=== PATIENT | female | born 1945 | race Caucasian/White ===

== ENCOUNTER 2016-08-28 07:56 | Inpatient (IN) | payer MEDICARE ==
[~2016-08-28] VITALS: Ht 154.9 cm; Wt 89.0 kg
[2016-08-28] MEDS ORDERED: HYDR25TA5 PO (08:46)
[2016-08-28] MEDS ORDERED: LOSA100T PO (08:46)
[2016-08-28] MEDS ORDERED: MELO-1 PO (08:46)
[2016-08-28] MEDS ORDERED: LEVO50TA4 PO (08:46)
[2016-08-28] MEDS ORDERED: MULTCAP PO (08:46)
[2016-08-28] MEDS ORDERED: ATOR20TA15 PO (08:46)
[2016-08-28] MEDS ORDERED: OMEP10CA PO (08:46)
[2016-08-28] MEDS ORDERED: CALCCHW3 CHEW (08:46)
[2016-09-07 05:52] VITALS: BP 144/69; PULSE 68; RESP 20; TEMP 98.1; O2SAT 95
[2016-09-07] MEDS ORDERED: GENTAMICIN SULFATE 80 MG/2 ML VIAL ONE (06:01)
[2016-09-07] MEDS ORDERED: LACTATED RINGER'S 1000 ML INJ 1,000 ML ONE (06:05)
[2016-09-07] MEDS ORDERED: MIDAZOLAM HCL 5 MG/5 ML VIAL ONE (06:10)
[2016-09-07] MEDS ORDERED: DEXAMETHASONE SOD PHOS 4 MG/ML VIAL ONE (06:18)
[2016-09-07] MEDS ORDERED: ceFAZolin 2 GM PREMIX 50 ML IV SCH (07:00)
[2016-09-07] MEDS ORDERED: TRANEXAMIC ACID INJ 900 MG in SODIUM CHLORIDE 0.9% INJ 100 ML IV SCH (07:00)
[2016-09-07] MEDS: TRANEXAMIC ACID INJ 900 MG in SODIUM CHLORIDE 0.9% INJ 100 ML IV SCH ×2 (07:00→07:22)
[2016-09-07] MEDS: CHLORHEXIDINE GLUCONATE 4% SOLN 120 ML BTL TOP SCH (07:00)
[2016-09-07] MEDS ORDERED: EXPAREL PERI-ARTICULAR INJECTION (TOTAL VOL. 100 ML) P-ARTICULR SCH ×2 (07:00)
[2016-09-07] MEDS ORDERED: TRANEXAMIC ACID INJ 0 MG in SODIUM CHLORIDE 0.9% INJ 100 ML IV SCH (07:15)
[2016-09-07] MEDS ORDERED: SODIUM CHLORIDE 0.9% FLUSH 5 ML FLUSH IVF PRN (07:15)
[2016-09-07] MEDS ORDERED: MORPHINE SULFATE 4 MG/ML INJ IV PUSH PRN (07:15)
[2016-09-07] MEDS ORDERED: ZOLPIDEM TARTRATE 5 MG TAB PO PRN (07:15)
[2016-09-07] MEDS ORDERED: ONDANSETRON HCL 4 MG/2 ML VIAL IVP PRN (07:15)
[2016-09-07] MEDS ORDERED: MAGNESIUM HYDROXIDE SUSP 30 ML CUP PO PRN (07:15)
[2016-09-07] MEDS ORDERED: Post-op Orders (for Pharmacy) MISC XX ONE (07:15)
[2016-09-07] MEDS: LEVOTHYROXINE SODIUM 50 MCG TAB PO SCH (09:00)
[2016-09-07] MEDS: ASPIRIN EC 81 MG TABEC PO SCH ×2 (09:00→20:43)
[2016-09-07] MEDS: LOSARTAN 50 MG TAB PO SCH (09:00)
[2016-09-07] MEDS: ATORVASTATIN 20 MG TAB PO SCH (09:00)
[2016-09-07] MEDS: SODIUM CHLORIDE 0.9% FLUSH 5 ML FLUSH IVF SCH ×2 (09:00→20:42)
[2016-09-07] MEDS: HYDROCHLOROTHIAZIDE 25 MG TAB PO SCH (09:00)
[2016-09-07] MEDS: MULTIVITAMINS/MINERALS THERAPEUTIC TAB PO SCH (09:00)
[2016-09-07] MEDS ORDERED: PTOWN: OMEPRAZOLE 10 MG BY MOUTH DAILY PO SCH (10:00)
[2016-09-07] MEDS ORDERED: DO NOT ADM ANY ANTICOAGULANT DRUGS XX PRN (10:30)
[2016-09-07] MEDS: LACTATED RINGER'S 1000 ML INJ 1,000 ML IV SCH ×2 (10:30→21:30)
--- NOTE | 2016-09-07 10:57 | RADRPT ---
EXAM DATE/TIME: 09/07/2016 10:08 [place] COMPARISON: No previous studies available for comparison. INDICATIONS : Post op left knee . MEDICAL HISTORY : None. SURGICAL HISTORY : None. ENCOUNTER: Initial ACUITY: 1 day PAIN SCORE: 08/04 LOCATION: Left knee FINDINGS: AP and lateral views of the left knee were obtained and demonstrate that the patient is status post t otal knee arthroplasty. The femoral and tibial components are intact and in normal alignment. The pat brie component is intact as well. There are overlying surgical drains. There is anterior soft tissue swelling. CONCLUSION: Expected postoperative changes status post arthroplasty. Jesse Garay MD on September 07, 2016 at 10:52 Board Certified Radiologist. This report was verified electronically.
[2016-09-07] MEDS: KETOROLAC TROMETHAMINE 30 MG/ML (IVP) VIAL IVP SCH ×3 (11:00→23:24)
--- NOTE | 2016-09-07 11:03 | PD.CONS ---
[facility] By [facility] Reason for Consult Medical management Primary Care Physician Barbie Paula M.D. Diagnoses: History of Present Illness 71-year-old female with a history of hypertension, hyperlipidemia, hypothyroidism and severe Left knee OA who despite medical management and injection continue to have severe right knee pain affecting her daily living of activity including ambulation. Patient was taken to the operating room today and underwent left total knee arthroplasty. She was seen after walking in PACU , denies any chest pain or shortness of breath. Vitals stable. Review of Systems Other 12 systems reviewed and are negative except for the one mentioned in the history of present illness Past Family Social History Allergies: Coded Allergies: No Known Allergies (Verified , 08/28/16) Past Medical History Hypertension Hyperlipidemia Hypothyroidism Bilateral severe OA Past Surgical History Left total knee arthroplasty 09/07/16 Reported Medications See EMR Family History Noncontributory Social History Denies tobacco, alcohol or illicit drug intake. Physical Exam Vital Signs Vital Signs Date Time Temp Pulse Resp B/P Pulse Ox O2 Delivery O2 Flow Rate FiO2 09/07/16 10:45 96 13 136/67 96 Room Air 09/07/16 10:30 92 13 139/65 97 Room Air 09/07/16 10:15 93 15 123/64 96 Room Air 09/07/16 10:00 95 14 110/65 98 Nasal Cannula 2 09/07/16 09:50 97.6 100 14 121/66 95 Nasal Cannula 2 09/07/16 06:30 72 14 146/77 97 09/07/16 06:15 65 16 164/82 99 09/07/16 06:01 69 16 174/80 99 09/07/16 06:01 99 Nasal Cannula 3 09/07/16 05:52 98.1 68 20 144/69 95 Physical Exam GENERAL: This is a well-nourished, well-developed patient, in no apparent distress. SKIN: No rashes, ecchymoses or lesions. Cool and dry. HEAD: Atraumatic. Normocephalic. No temporal or scalp tenderness. EYES: Pupils equal round and reactive. Extraocular motions intact. No scleral icterus. No injection or drainage. ENT: Nose without bleeding, purulent drainage or septal hematoma. Throat without erythema, tonsillar hypertrophy or exudate. Uvula midline. Airway patent. NECK: Trachea midline. No JVD or lymphadenopathy. Supple, nontender, no meningeal signs. CARDIOVASCULAR: Regular rate and rhythm without murmurs, gallops, or rubs. RESPIRATORY: Clear to auscultation. Breath sounds equal bilaterally. No wheezes , rales, or rhonchi. GASTROINTESTINAL: Abdomen soft, non-tender, nondistended. No hepato-splenomegaly , or palpable masses. No guarding. MUSCULOSKELETAL: Extremities without clubbing, cyanosis, or edema. Left knee repair, dressing in place-neurovascular intact NEUROLOGICAL: Awake and alert. Cranial nerves II through XII intact. Motor and sensory grossly within normal limits. Five out of 5 muscle strength in all muscle groups. Normal speech. Laboratory Laboratory Tests Test 09/07/16 05:50 Blood Type O POSITIVE Antibody Screen NEGATIVE Blood Bank Comment Assessment and Plan Assessment and Plan 21-year-old female with Severe left knee OA: Status post left total knee arthroplasty, management per orthopedic surgery. Continue current postop care. DVT prophylaxis per orthopedic surgery. ET consult to treat and eval. History of hypertension, hyperlipidemia, hypothyroidism: Resume outpatient medication. DVT prophylaxis: Per orthopedic surgery. Thank you for this consultation Code Status Full code Discussed Condition With Patient Torres Patrick MD Sep 07, 2016 11:03
[2016-09-07] MEDS ORDERED: ENALAPRILAT 1.25 MG/ML VIAL IV PUSH PRN (11:15)
[2016-09-07] MEDS ORDERED: RESP: ALBUTEROL 2.5 MG/IPRATROPIUM 0.5 MG NEB (PRN) NEB (11:15)
[2016-09-07] MEDS ORDERED: LACTATED RINGER'S 1000 ML INJ 1,000 ML IV ONE (13:05)
[2016-09-07] MEDS ORDERED: ePHEDrine/NS 25 MG/5 ML SYR IV ONE (13:05)
[2016-09-07] MEDS ORDERED: ONDANSETRON HCL 4 MG/2 ML VIAL IV PUSH ONE (13:05)
[2016-09-07] MEDS ORDERED: PROPOFOL 200 MG/20 ML AMP IV ONE (13:05)
[2016-09-07 13:09] VITALS: BP 120/67; PULSE 107; RESP 16; TEMP 96; O2SAT 96
[2016-09-07] MEDS ORDERED: BUPIVACAINE HCL PF 0.5% 30 ML VIAL NB ONE (14:29)
[2016-09-07] MEDS ORDERED: DEXAMETHASONE SOD PHOS PF 10 MG/ML VIAL IV ONE (14:30)
[2016-09-07] MEDS: ACETAMINOPHEN/HYDROcodone 325 MG/7.5 MG TAB PO PRN (17:40)
[2016-09-07 20:09] VITALS: BP 113/57; PULSE 76; RESP 18; TEMP 97.8; O2SAT 92
[2016-09-08] VITALS: BP 111/55; PULSE 80; RESP 16; TEMP 97.2; O2SAT 98
[2016-09-08 04:00] VITALS: BP 123/57; PULSE 73; RESP 16; TEMP 97.6; O2SAT 94
[2016-09-08] MEDS: KETOROLAC TROMETHAMINE 30 MG/ML (IVP) VIAL IVP SCH ×4 (06:03→23:23)
[2016-09-08] MEDS: LEVOTHYROXINE SODIUM 50 MCG TAB PO SCH (06:06)
[2016-09-08] MEDS: ACETAMINOPHEN/HYDROcodone 325 MG/7.5 MG TAB PO PRN ×4 (06:06→20:57)
--- NOTE | 2016-09-08 06:43 | PD.ORT.PN ---
Subjective Post Op Day #: 1 Subjective Remarks She is doing well, with little pain. She has been OOB. Range of Motion -15 to 90 degrees. Distance Walked 40 feet twice. Objective Vitals Vital Signs Date Time Temp Pulse Resp B/P Pulse Ox O2 Delivery O2 Flow Rate FiO2 09/08/16 04:00 97.6 73 16 123/57 94 09/08/16 00:00 97.2 80 16 111/55 98 09/07/16 20:09 97.8 76 18 113/57 92 09/07/16 13:09 96.0 107 16 120/67 96 09/07/16 12:00 97.5 100 12 129/66 98 Nasal Cannula 2 09/07/16 11:45 98 12 122/69 98 Nasal Cannula 2 09/07/16 11:30 74 12 142/62 99 Nasal Cannula 2 09/07/16 11:15 98 12 141/71 93 Room Air 09/07/16 11:00 97 14 142/72 95 Room Air 09/07/16 10:45 96 13 136/67 96 Room Air 09/07/16 10:30 92 13 139/65 97 Room Air 09/07/16 10:15 93 15 123/64 96 Room Air 09/07/16 10:00 95 14 110/65 98 Nasal Cannula 2 09/07/16 09:50 97.6 100 14 121/66 95 Nasal Cannula 2 I/O 09/07/16 09/07/16 09/07/16 09/08/16 09/08/16 09/08/16 07:00 15:00 23:00 07:00 15:00 23:00 Intake Total 1460 ml 240 ml 280 ml Output Total 370 ml 80 ml 30 ml Balance 1090 ml 160 ml 250 ml Intake Oral 80 ml 240 ml IV Total 180 ml 280 ml Other 1200 ml Output Drainage Total 70 ml 80 ml 30 ml Estimated Blood Loss 300 ml # Voids 1 # Bowel Movements 0 Imaging Knee x-ray looks good. Last 72 hours Impressions Knee X-Ray 09/07/16 0000 Signed Impressions: Service Date/Time: Wednesday, September 07, 2016 10:08 - CONCLUSION: Expected postoperative changes status post arthroplasty. Jesse Gaary MD Objective Remarks She is resting comfortably, supine in bed in the CPM. The neurovascular status is intact. The dressing is dry and intact. Assessment & Plan Ortho Post Op Day #: 1 Problem List: (1) Status post total left knee replacement Plan: Continue postop care and PT. Assessment and Plan Condition: Good. Orthopaedically stable. DVT prophylaxis: JENNA stockings, sequentials, ASA. Discharge plans: Home with [facility]. Has appointment. Flaco Sams MD (Charles) Sep 08, 2016 06:43
[2016-09-08] MEDS: CHLORHEXIDINE GLUCONATE 4% SOLN 120 ML BTL TOP SCH (07:00)
[2016-09-08 08:00] VITALS: BP 114/56; PULSE 66; RESP 16; TEMP 97; O2SAT 95
[2016-09-08 08:10] LABS: HEMATOCRIT 27.3 % (35.0-46.0); REVIEW FLAG FINAL
[2016-09-08 08:48] LABS: BICARBONATE 25.5 MEQ/L (21.0-32.0); POTASSIUM 3.5 MEQ/L (3.5-5.1)
[2016-09-08] MEDS: SODIUM CHLORIDE 0.9% FLUSH 5 ML FLUSH IVF SCH ×2 (09:00→21:02)
[2016-09-08] MEDS: HYDROCHLOROTHIAZIDE 25 MG TAB PO SCH (09:14)
[2016-09-08] MEDS: MULTIVITAMINS/MINERALS THERAPEUTIC TAB PO SCH (09:14)
[2016-09-08] MEDS: LOSARTAN 50 MG TAB PO SCH (09:14)
[2016-09-08] MEDS: ASPIRIN EC 81 MG TABEC PO SCH ×2 (09:14→20:57)
[2016-09-08] MEDS: ATORVASTATIN 20 MG TAB PO SCH (09:14)
[2016-09-08] MEDS: LACTATED RINGER'S 1000 ML INJ 1,000 ML IV SCH ×2 (10:00→22:30)
--- NOTE | 2016-09-08 10:02 | HHI.PR ---
Subjective Remarks Patient seen and examined Reports pain control and no acute event overnight States she was up and ambulated since admission Objective Vitals Vital Signs Date Time Temp Pulse Resp B/P Pulse Ox O2 Delivery O2 Flow Rate FiO2 09/08/16 08:00 97.0 66 16 114/56 95 09/08/16 04:00 97.6 73 16 123/57 94 09/08/16 00:00 97.2 80 16 111/55 98 09/07/16 20:09 97.8 76 18 113/57 92 09/07/16 13:09 96.0 107 16 120/67 96 09/07/16 12:00 97.5 100 12 129/66 98 Nasal Cannula 2 09/07/16 11:45 98 12 122/69 98 Nasal Cannula 2 09/07/16 11:30 74 12 142/62 99 Nasal Cannula 2 09/07/16 11:15 98 12 141/71 93 Room Air 09/07/16 11:00 97 14 142/72 95 Room Air 09/07/16 10:45 96 13 136/67 96 Room Air 09/07/16 10:30 92 13 139/65 97 Room Air 09/07/16 10:15 93 15 123/64 96 Room Air 09/07/16 10:00 95 14 110/65 98 Nasal Cannula 2 I/O 09/07/16 09/07/16 09/07/16 09/08/16 09/08/16 09/08/16 07:00 15:00 23:00 07:00 15:00 23:00 Intake Total 1460 ml 240 ml 460 ml Output Total 370 ml 80 ml 30 ml Balance 1090 ml 160 ml 430 ml Intake Oral 80 ml 240 ml 180 ml IV Total 180 ml 280 ml Other 1200 ml Output Drainage Total 70 ml 80 ml 30 ml Estimated Blood Loss 300 ml # Voids 1 1 # Bowel Movements 0 Result Diagram: 09/08/16 0750 09/08/16 0750 Imaging Last Impressions Knee X-Ray 09/07/16 0000 Signed Impressions: Service Date/Time: Wednesday, September 07, 2016 10:08 - CONCLUSION: Expected postoperative changes status post arthroplasty. Jesse Garay MD Objective Remarks GENERAL: NAD SKIN: Warm and dry. HEAD: Normocephalic. EYES: No scleral icterus. No injection or drainage. NECK: Supple, trachea midline. No JVD or lymphadenopathy. CARDIOVASCULAR: Regular rate and rhythm without murmurs, gallops, or rubs. RESPIRATORY: Breath sounds equal bilaterally. No accessory muscle use. GASTROINTESTINAL: Abdomen soft, non-tender, nondistended. MUSCULOSKELETAL: No cyanosis, or edema. Left knee repair, dressing in place- neurovascular intact BACK: Nontender without obvious deformity. No CVA tenderness. A/P Assessment and Plan 71-year-old female with Severe left knee OA: Status post left total knee arthroplasty, management per orthopedic surgery. Continue current postop care. DVT prophylaxis per orthopedic surgery. PT consult to treat and eval. History of hypertension, hyperlipidemia, hypothyroidism: continue outpatient medications. DVT prophylaxis: Per orthopedic surgery. Torres Patrick MD Sep 08, 2016 10:02
[2016-09-08] MEDS: MAGNESIUM HYDROXIDE SUSP 30 ML CUP PO SCH ×2 (11:38→20:57)
[2016-09-08 12:00] VITALS: BP 112/55; PULSE 69; RESP 16; TEMP 96; O2SAT 95
[2016-09-08 16:29] VITALS: BP 121/62; PULSE 55; RESP 16; TEMP 97.4; O2SAT 93
--- NOTE | 2016-09-08 19:58 | MP ---
cc: Yanira ADDISON. DATE OF SURGERY: 09/07/2016 PREOPERATIVE DIAGNOSIS: Primary osteoarthritis left knee. POSTOPERATIVE DIAGNOSIS: Primary osteoarthritis left knee. OPERATION: Left total knee arthroplasty with [place] Triathlon prosthesis (uncemented). SURGEON Justin Addison MD ASSESSMENT [facility] ANESTHESIA: Spinal plus adductor canal block, plus local. INDICATIONS AND FINDINGS This 71-year-old woman has had a 2-year history of left knee pain progressively worsening to the point that she has less than half a mile ambulation tolerance. She has laxity in the knee with stiffness and pain with stairs or chairs. She has to lean on a cart when she shops. She has pain immediately on weightbearing. Treatment has included nonsteroidal anti-inflammatory agents, activity modification, analgesics, exercises, intra-articular corticosteroids and ambulatory aids. Physical findings showed genu varum with medial laxity, crepitation on motion and tenderness particularly in the medial and patellofemoral compartments. Imaging studies showed advanced arthritis in the knee with loss of articular cartilage to [id number] in the medial compartment, osteophytes in the medial, lateral and patellofemoral compartments and eburnation medially. OPERATIVE FINDINGS Operative findings showed significant osteoarthritis in the left knee particularly in the medial compartment with medial lateral and patellofemoral osteophytes. There is loss of articular cartilage also in the patellofemoral and lateral compartments. The prosthesis used was a [place] Triathlon prosthesis. The femur is a cruciate-retaining left femur size 4, uncemented, with the tibia being a size 4 Tritanium base plate also uncemented, the spacer being a size 4 cruciate-retaining 11 mm and the patella being a 32 mm asymmetric Tritanium backed patella. PROCEDURE The patient had an adductor canal block and then was transferred to the clean-air operating suite. She had a spinal anesthetic administered. She was placed in a supine position on the operating table with a bolster under the affected hip and a pneumatic tourniquet about the affected thigh. The limb was then prepped with alcohol, Hibiclens and Chloraprep and draped in the usual manner with the knee draped free. An appropriate time-out procedure was carried out. Local anesthesia was administered into the incision site. The incision was made from about three fingerbreadths above the superior and medial pole of patella down to the tibial tubercle on the medial side. The incision was deepened through the subcutaneous tissues to the retinacular structures which were exposed medially and laterally. A medial retinacular incision was made from the superior and medial pole of the patella down to the tibial tubercle up into the quadriceps tendon splitting it longitudinally in the medial one third. The patella was reflected. The infrapatellar fat pad was debulked. Medial and lateral dissection was carried out. Hemostasis achieved throughout the procedure with electrocautery. The posterior surface of the patella was exposed. The posterior surface was then excised with the oscillating saw. A patella protector was applied. Fenestration was made in the distal end of the femur and proximal end of the tibia for intermedullary referencing guides. Mara's line was marked on the femur. The distal femoral cutting guide and jig were assembled for 5 degrees 8-mm cut. The cutting block was stabilized with pins. The jig was removed. The distal femoral cut was completed with the oscillating saw. The sizing guide was positioned along the Mara's line and the epicondylar axis. This was stabilized with pins. The size was determined to be a size 4. The appropriate four-in-one cutting block was then positioned in place and stabilized with pins. Anterior and posterior cuts were made followed by posterior and anterior chamfer cuts. Osteophytes were trimmed. The medial and lateral meniscectomies were completed. The tibial cutting guide and jig were then assembled and positioned appropriately. Rotation was checked and this was stabilized with pins. The depth of cut was verified with the stylus. The cutting block was stabilized with pins. The jig was removed. The depth of cut was verified with the spacer block. The cutting block was stabilized with a cross pin. After placement of appropriate retractors, the proximal tibial cut was completed with the oscillating saw. The bone was removed. The spacer block was used to verify the appropriate cut. The fenestrations were then filled with bone plugs. The posterior osteophytes on the femur were removed. The posterior capsule and associated structures were anesthetized with Exparel. The tibial trial was positioned in place with a 9 mm spacer. The femoral component was impacted onto the femur. It appeared that this needed to be rechecked so it was removed, and the 11-mm spacer inserted. The femoral component was impacted into place and seated appropriately. The alignment was checked on the tibia. This was then stabilized with pins. The patella drill guide was positioned for the 32-mm patella. Drill holes were made. The trial prosthesis was inserted. The knee was taken through a range of motion which was easily 0 degrees extension to 135 degrees of flexion with excellent stability and excellent tracking of the patella. Patella trial was removed. Femoral drill holes were made. The femoral trials removed. The tibial spacer was removed. Tibial punch was impacted through its guide and removed. The tibial drill guide was positioned in place after removal of the tibial trial. Drill holes were made. The cut ends of bone were cleaned with pulse lavage. Further local anesthesia was administered. The tibial baseplate was impacted into place and seated appropriately. The spacer was inserted and impacted into place. The femoral component was then impacted into place. The patella was prosthesis with positioned on the patella and seated with the patella vice. The knee was taken through a range of motion which was easily 0 degrees extension with 150 degrees of flexion with excellent stability in flexion and extension. The remainder of the Exparel was injected. Drains were brought out the superolateral aspect of the suprapatellar pouch. Wound closure then commenced with 0 Vicryl interrupted [id number] sutures for the retinacular structures and capsular structures, 2-0 Vicryl interrupted simple sutures with buried knots for the subcutaneous tissues and 4-0 Monocryl continuous subcuticular closure for the skin. The wounds were dressed with Steri-Strips followed by dry dressing, sterile Sof-Rol, cooling pad, further sterile Sof-Rol and Eliecer bandage from the base the toes to midthigh. The patient was transferred from the operating room to the recovery room in satisfactory condition having tolerated the procedure well. Counts were correct. Specimens none. Estimated blood loss 175 mL. MD ALEXEI Moreno/DENISE /9:42 AM /7:43 PM
[2016-09-08 20:06] VITALS: BP 123/58; PULSE 71; RESP 20; TEMP 98; O2SAT 97
[2016-09-08] MEDS: DOCUSATE SODIUM 100 MG CAP PO SCH (20:57)
[2016-09-08] MEDS ORDERED: SENNOSIDES 8.6 MG TAB PO SCH (21:00)
[2016-09-09] VITALS: BP 102/43; PULSE 62; RESP 20; TEMP 98.3; O2SAT 93
[2016-09-09 04:00] VITALS: BP 121/57; PULSE 58; RESP 20; TEMP 97; O2SAT 93
[2016-09-09] MEDS: KETOROLAC TROMETHAMINE 30 MG/ML (IVP) VIAL IVP SCH (05:48)
[2016-09-09] MEDS: LEVOTHYROXINE SODIUM 50 MCG TAB PO SCH (05:48)
[2016-09-09] MEDS: ACETAMINOPHEN/HYDROcodone 325 MG/7.5 MG TAB PO PRN (05:49)
[2016-09-09 06:57] LABS: HEMATOCRIT 27.3 % (35.0-46.0); REVIEW FLAG FINAL
[2016-09-09] MEDS: CHLORHEXIDINE GLUCONATE 4% SOLN 120 ML BTL TOP SCH (07:00)
--- NOTE | 2016-09-09 07:09 | PD.ORT.PN ---
Subjective Post Op Day #: 2 Subjective Remarks She did well in the class. She has little pain. Range of Motion -10 to 95. Distance Walked 200 feet. Objective Vitals Vital Signs Date Time Temp Pulse Resp B/P Pulse Ox O2 Delivery O2 Flow Rate FiO2 09/09/16 00:00 98.3 62 20 102/43 93 09/08/16 20:06 98.0 71 20 123/58 97 09/08/16 16:29 97.4 55 16 121/62 93 09/08/16 12:00 96.0 69 16 112/55 95 09/08/16 08:00 97.0 66 16 114/56 95 I/O 09/08/16 09/08/16 09/08/16 09/09/16 09/09/16 09/09/16 07:00 15:00 23:00 07:00 15:00 23:00 Intake Total 460 ml 240 ml 240 ml Output Total 30 ml 70 ml 20 ml Balance 430 ml 170 ml 220 ml Intake Oral 180 ml 240 ml 240 ml IV Total 280 ml Output Drainage Total 30 ml 70 ml 20 ml # Voids 1 3 1 # Bowel Movements 1 0 Result Diagram: 09/09/16 0555 09/08/16 0750 Imaging Knee x-ray looks good. Last 72 hours Impressions Knee X-Ray 09/07/16 0000 Signed Impressions: Service Date/Time: Wednesday, September 07, 2016 10:08 - CONCLUSION: Expected postoperative changes status post arthroplasty. Jesse Garay MD Objective Remarks She is resting comfortably, supine in bed in the CPM. The neurovascular status is intact. The dressing is dry and intact. There is no erythema or induration. Assessment & Plan Ortho Post Op Day #: 1 Problem List: (1) Status post total left knee replacement Plan: Continue postop care and PT. Assessment and Plan Condition: Good. Orthopaedically stable. DVT prophylaxis: JENNA stockings, sequentials, ASA. Discharge plans: Home with [facility]. Has appointment. Flaco Sams MD (Charles) Sep 09, 2016 07:09
[2016-09-09 08:00] VITALS: BP 129/57; PULSE 58; RESP 20; TEMP 96.7; O2SAT 96
--- NOTE | 2016-09-09 08:07 | HHI.FF ---
Face to Face Verification Diagnosis: (1) Status post total left knee replacement Physical Therapy Gait training Knee: Total knee, Protocol: Left, Gait training, Full weight bearing Right LE Weight Bearing: WB as tolerated Left LE Weight Bearing: WB as tolerated Left LE Range of Motion: Active ROM (AROM, AAROM, PROM, PRE. ROM goal is 0 to 135 degrees.) Nursing Nursing: Dressing changes Dressing Changes: Daily dressing change, Coverderm/Primapore Additional Instructions Remove steristrips on postop day 14. I have seen patient Alivia Levi on 09/09/16. My clinical findings support the need for the requested home health care services because: Ltd mobility - disease progression Limited ability to care for self High risk of falls I certify that my clinical findings support that this patient is homebound because: Post-op weakness Unsteady gait/balance Unsafe to leave home unassisted Flaco Sams MD (Charles) Sep 09, 2016 08:07
[2016-09-09] MEDS ORDERED: ASPI81TA11 PO (08:11)
[2016-09-09] MEDS ORDERED: WALKER WHEELS/F1 MIS (08:11)
[2016-09-09] MEDS ORDERED: MISC-163 (08:11)
[2016-09-09] MEDS ORDERED: HYDR-3580 PO (08:11)
[2016-09-09] MEDS: SODIUM CHLORIDE 0.9% FLUSH 5 ML FLUSH IVF SCH (09:00)
[2016-09-09] MEDS: MAGNESIUM HYDROXIDE SUSP 30 ML CUP PO SCH (09:00)
[2016-09-09] MEDS: ATORVASTATIN 20 MG TAB PO SCH (09:08)
[2016-09-09] MEDS: LOSARTAN 50 MG TAB PO SCH (09:08)
[2016-09-09] MEDS: DOCUSATE SODIUM 100 MG CAP PO SCH (09:08)
[2016-09-09] MEDS: HYDROCHLOROTHIAZIDE 25 MG TAB PO SCH (09:09)
[2016-09-09] MEDS: MULTIVITAMINS/MINERALS THERAPEUTIC TAB PO SCH (09:09)
[2016-09-09] MEDS: ASPIRIN EC 81 MG TABEC PO SCH (09:09)
[2016-09-09] MEDS: LACTATED RINGER'S 1000 ML INJ 1,000 ML IV SCH (09:12)
--- NOTE | 2016-09-09 11:09 | HHI.PR ---
Subjective Remarks Patient seen and examined No acute event overnight Pain currently control Afebrile She is looking for discharge home with home health care Objective Vitals Vital Signs Date Time Temp Pulse Resp B/P Pulse Ox O2 Delivery O2 Flow Rate FiO2 09/09/16 08:00 96.7 58 20 129/57 96 09/09/16 04:00 97.0 58 20 121/57 93 09/09/16 00:00 98.3 62 20 102/43 93 09/08/16 20:06 98.0 71 20 123/58 97 09/08/16 16:29 97.4 55 16 121/62 93 09/08/16 12:00 96.0 69 16 112/55 95 I/O 09/08/16 09/08/16 09/08/16 09/09/16 09/09/16 09/09/16 07:00 15:00 23:00 07:00 15:00 23:00 Intake Total 460 ml 240 ml 240 ml Output Total 30 ml 70 ml 20 ml Balance 430 ml 170 ml 220 ml Intake Oral 180 ml 240 ml 240 ml IV Total 280 ml Output Drainage Total 30 ml 70 ml 20 ml # Voids 1 3 1 1 # Bowel Movements 1 0 1 Result Diagram: 09/09/16 0555 09/08/16 0750 Objective Remarks GENERAL: NAD SKIN: Warm and dry. HEAD: Normocephalic. EYES: No scleral icterus. No injection or drainage. NECK: Supple, trachea midline. No JVD or lymphadenopathy. CARDIOVASCULAR: Regular rate and rhythm without murmurs, gallops, or rubs. RESPIRATORY: Breath sounds equal bilaterally. No accessory muscle use. GASTROINTESTINAL: Abdomen soft, non-tender, nondistended. MUSCULOSKELETAL: No cyanosis, or edema. Left knee repair, dressing in place- neurovascular intact BACK: Nontender without obvious deformity. No CVA tenderness. A/P Assessment and Plan 71-year-old female with Severe left knee OA: Status post left total knee arthroplasty, management per orthopedic surgery. Continue current postop care. DVT prophylaxis per orthopedic surgery. PT consult to treat and eval. History of hypertension, hyperlipidemia, hypothyroidism: Stable and continue outpatient medications. DVT prophylaxis: Per orthopedic surgery. Discharge Planning Medically clear for discharge Torres Patrick MD Sep 09, 2016 11:09
[2016-09-09 12:00] VITALS: BP 116/57; PULSE 80; RESP 16; TEMP 96.8; O2SAT 92
== END 2016-09-09 15:02 | disposition home health service (06) | DRG 470 ==
LOC: HSDI 09-07 05:11 → N06B 09-07 12:49
PROVIDERS: ADMIT Orthopaedic Surgery; ATTEND Orthopaedic Surgery
PROC: 0QRF0JZ Replacement of Left Patella with Synthetic Substitute, Open Approach (ICD-10-PCS; 2016-09-07)
PROC: 3E0T3CZ (ICD-10-PCS; 2016-09-07)
PROC: 0SRD0JA Replacement of Left Knee Joint with Synthetic Substitute, Uncemented, Open Approach (ICD-10-PCS; principal; 2016-09-07 06:47)
DX: M17.12 Unilateral primary osteoarthritis, left knee (principal); I10 Essential (primary) hypertension; E78.5 Hyperlipidemia, unspecified; E03.9 Hypothyroidism, unspecified; M25.762 Osteophyte, left knee; M21.162 Varus deformity, not elsewhere classified, left knee; K21.9 Gastro-esophageal reflux disease without esophagitis
CPT/HCPCS: 73560; 80048; 85014; 85018; 86850; 86900; 86901; 94150; C1776; J0690; J1100; J1580; J1885; J2250; J2270; J2405; J7120

== ENCOUNTER → 2016-08-28 | Outpatient (CLI) | payer MEDICARE ==
[~2016-08-28] MED LIST: ASPI81TA11 PO; ATOR20TA15 PO; CALCCHW3 CHEW; CALCTAB98; DOCU100C PO; FERR325T20 PO; HYDR-3111 PO; HYDR-3580 PO; HYDR25TA5 PO; LEVO50TA4 PO; LOSA100T PO; MELO-1 PO; MISC-163; MOBI15TA PO; MULTCAP PO; MULTIVITAMIN; MULTTAB67 PO; OMEP10CA PO; PREVASTATIN PO; WALKER WHEELS/F1 MIS
[2016-08-28 08:19] LABS: HEMATOCRIT 35.6 % (35.0-46.0); MEAN CELL VOLUME 86.2 FL (80.0-100.0); MEAN CORPUSCULAR HEMOGLOBIN 30.1 PG (27.0-34.0); MEAN CORPUSCULAR HGB CONC 34.9 % (32.0-36.0); PLATELET COUNT 247 TH/MM3 (150-450); RED BLOOD COUNT 4.13 MIL/MM3 (4.00-5.30); RED CELL DISTRIBUTION WIDTH 12.8 % (11.6-17.2); REVIEW FLAG FINAL; WHITE BLOOD COUNT 5.3 TH/MM3 (4.0-11.0)
[2016-08-28 08:31] LABS: APTT (PATIENT) 26.7 SEC (24.3-30.1); PROTHROMBIN TIME - PATIENT 10.7 SEC (9.8-11.6)
[2016-08-28 08:51] LABS: BICARBONATE 30.2 MEQ/L (21.0-32.0)
[2016-08-28 09:12] LABS: BLOOD, URINE NEG (NEG); GLUCOSE,URINE NEG (NEG); KETONE, URINE NEG (NEG); MUCUS URINE FEW /lpf (OCC); NITRITE,URINE NEG (NEG); SQUAMOUS EPITHELIAL CELL URINE <1 /hpf (0-5); URINE COLOR YELLOW (YELLW/STRAW)
[2016-08-28 09:15] LABS: COMMENT (UR) CATH-CULT NOT IND; CULTURE IF INDICATED CATH CULTURE NOT IND
--- NOTE | 2016-08-30 12:26 | EKG ---
Date Performed: 08/28/2016 Time Performed: 08:36:17 PTAGE: 71 years EKG: Sinus rhythm WITH FIRST DEGREE AV BLOCK LOW QRS VOLTAGE IN PRECORDIAL LEADS Since previous tracing, no significan t change noted ABNORMAL ECG PREVIOUS TRACING : 09/22/2010 10.48.42 DOCTOR: Esvin Sullivan Interpretating Date/Time 08/30/2016 12:24:26
== END ==
LOC: CPRE 07:53
PROVIDERS: ATTEND Orthopaedic Surgery
DX: Z01.812 Encounter for preprocedural laboratory examination (principal); Z01.810 Encounter for preprocedural cardiovascular examination; M17.12 Unilateral primary osteoarthritis, left knee; M79.609 Pain in unspecified limb; I10 Essential (primary) hypertension; I44.0 Atrioventricular block, first degree; R94.31 Abnormal electrocardiogram [ECG] [EKG]
CPT/HCPCS: 36415; 80048; 81001; 85027; 85610; 85730; 93005

== ENCOUNTER 2016-09-19 10:29 | Emergency (ER) | payer MEDICARE ==
[~2016-09-19] VITALS: Ht 154.9 cm; Wt 194.0 kg
[~2016-09-19 10:29] MED LIST changes: -CALCTAB98; -DOCU100C PO; -FERR325T20 PO; -HYDR-3111 PO; -MOBI15TA PO; -MULTIVITAMIN; -MULTTAB67 PO; -PREVASTATIN PO
[2016-09-19 10:49] VITALS: BP 147/77; PULSE 106; RESP 16; TEMP 97.8; O2SAT 96
[2016-09-19] MEDS ORDERED: HYDR-3111 PO (11:24)
--- NOTE | 2016-09-19 11:26 | PD ---
HPI Chief Complaint: Medication Refill Request Time Seen by Provider: 11:14 Travel History International Travel<30 days: No Contact w/Intl Traveler<30days: No Traveled to known affect area: No History of Present Illness HPI This patient is requesting medication refill of her Vicodin. She had knee replacement 12 days ago. I received a call from her orthopedist coverage Dr. Tobias Daniel who asked if I would write a few to get her through the weekend. Pain severity is moderate PFSH Past Medical History Asthma: No Cancer: No Cardiovascular Problems: No COPD: No Diabetes: No Endocrine: No Gastrointestinal Disorders: Yes GERD: Yes Glaucoma: No Genitourinary: No Hepatitis: No Hiatal Hernia: No Hypertension: Yes Immune Disorder: No Musculoskeletal: Yes (OA) Neurologic: No Psychiatric: No Reproductive: No Respiratory: No Thyroid Disease: Yes Past Surgical History Abdominal Surgery: No AICD: No Cardiac Surgery: No Ear Surgery: No Endocrine Surgery: No Eye Surgery: Yes (LASIK) Genitourinary Surgery: No Gynecologic Surgery: Yes (TUBAL LIGATION) Joint Replacement: No Oral Surgery: Yes (TONSILLECTOMY AND ADNOIDS) Pacemaker: No Thoracic Surgery: No Other Surgery: Yes Social History Alcohol Use: No Tobacco Use: No Substance Use: No Allergies-Medications (Allergen,Severity, Reaction): Coded Allergies: No Known Allergies (Verified , 09/19/16) Reported Meds & Prescriptions Reported Meds & Active Scripts Active Hydrocodone-Acetaminophen 7.5-325 mg Tab 1 Tab PO Q4H PRN Aspirin EC (Aspirin) 81 Mg Tabdr 81 Mg PO BID Walker with Front Wheels (Device) 1 Mis Mis 1 Ea .ROUTE DIRECTED 3-in-1 Bedside Toilet (Device) 1 Mis Mis 1 Ea .ROUTE DIRECTED Reported Calci-Chew (Calcium Carbonate) 1,250 Mg Chew 1,250 Mg CHEW 1,250 mg calcium carbonate (500 mg elemental calcium) Omeprazole 10 Mg Cap 10 Mg PO DAILY Multi For Her (Multiple Vitamins W/ Minerals) 1 Cap Cap 1 Tab PO DAILY Meloxicam 15 Mg Tab 15 Mg PO DAILY Levothyroxine (Levothyroxine Sodium) 50 Mcg Tab 50 Mcg PO DAILY Losartan (Losartan Potassium) 100 Mg Tab 100 Mg PO DAILY Hydrochlorothiazide 25 Mg Tab 25 Mg PO DAILY Atorvastatin (Atorvastatin Calcium) 20 Mg Tab 20 Mg PO DAILY Review of Systems General / Constitutional: No: Fever HENT: No: Headaches Cardiovascular: No: Chest Pain or Discomfort Physical Exam Narrative Psych: Normal mood and affect. Normal insight and judgment. SKIN: Inspection shows no rash or ulcers. Palpation shows no induration or nodules. Data Data Last Documented VS Vital Signs Date Time Temp Pulse Resp B/P Pulse Ox O2 Delivery O2 Flow Rate FiO2 09/19/16 10:49 97.8 106 16 147/77 96 MDM Medical Decision Making Medical Screen Exam Complete: Yes Emergency Medical Condition: Yes Medical Record Reviewed: Yes Differential Diagnosis Medicine refill, post surgical pain, contusion Narrative Course I have reviewed the patient's electronic medical record. I refilled 10 Vicodin to get her through the weekend to contact her orthopedist on Wednesday. Diagnosis Primary Impression: Status post total left knee replacement Additional Impression: Postoperative pain of left knee Additional Instructions: The patient was advised to follow up with their physician and return if they worsen. The patient was warned about potential sedation for the medications they will receive on prescription. Med/Other Pt SpecificInfo: Prescription(s) given Scripts Hydrocodone-Acetaminophen (Vicodin)5-300 Mg Tab1 Tab PO Q6H PRN (PAIN) #10 TAB Ref 0 Prov:Lemuel Brock MD 09/19/16 Disposition: 01 DISCHARGE HOME Condition: Stable Lemuel Brock MD Sep 19, 2016 11:26
== END 2016-09-19 11:39 | disposition home or self-care (01) ==
LOC: PHEFT 10:29
DX: G89.18 Other acute postprocedural pain (principal); M25.562 Pain in left knee; Z76.0 Encounter for issue of repeat prescription; Z96.652 Presence of left artificial knee joint
CPT/HCPCS: 99281

== ENCOUNTER 2016-12-11 08:18 | Inpatient (IN) | payer MEDICARE ==
[~2016-12-11] VITALS: Ht 154.9 cm; Wt 85.2 kg
[~2016-12-11 08:18] MED LIST changes: -DOCU100C PO; -FERR325T20 PO; -HYDR-3580 PO; -MISC-163; -MOBI15TA PO; -MULTTAB67 PO; -WALKER WHEELS/F1 MIS
[2016-12-22] MEDS ORDERED: CHLORHEXIDINE GLUCONATE 4% SOLN 120 ML BTL TOPICAL SCH (05:45)
[2016-12-22] MEDS ORDERED: CHLORHEXIDINE GLUCONATE 2 % 1 PACK (2 CLOTHS) TOPICAL PRN (05:45)
[2016-12-22] MEDS ORDERED: LACTATED RINGER'S 1000 ML IV PRN (05:45)
[2016-12-22] MEDS ORDERED: POVIDONE IODINE 5% (ANTISEPSIS KIT) 4 APPLICATIONS EACH NARE PRN (05:45)
[2016-12-22] MEDS ORDERED: INSULIN HUMAN REGULAR 1,000 UNITS/10 ML VIAL SQ PRN (05:45)
[2016-12-22] MEDS ORDERED: ceFAZolin 2 GM PREMIX 50 ML IV SCH (05:45)
[2016-12-22] MEDS ORDERED: SODIUM CHLORID 0.9% 500 ML IV PRN (05:45)
[2016-12-22] MEDS ORDERED: METOPROLOL TARTRATE 25 MG TAB PO PRN (05:45)
[2016-12-22] MEDS ORDERED: MOBI15TA PO (05:50)
[2016-12-22] MEDS ORDERED: MULTTAB67 PO (05:50)
[2016-12-22 05:51] VITALS: BP 149/69; PULSE 72; RESP 20; TEMP 98.4; O2SAT 96
[2016-12-22] MEDS ORDERED: GENTAMICIN SULFATE 80 MG/2 ML VIAL ONE (06:16)
[2016-12-22] MEDS ORDERED: MIDAZOLAM HCL 2 MG/2 ML VIAL ONE (06:26)
[2016-12-22] MEDS ORDERED: ACETAMINOPHEN 1000 MG/100 ML VIAL IV ONE (06:35)
[2016-12-22] MEDS ORDERED: FAMOTIDINE 20 MG/2 ML VIAL ONE (06:35)
[2016-12-22] MEDS ORDERED: fentaNYL CITRATE 250 MCG/5 ML AMP ONE (06:35)
[2016-12-22] MEDS ORDERED: DEXAMETHASONE SOD PHOS 4 MG/ML VIAL ONE (06:35)
[2016-12-22] MEDS ORDERED: MAGNESIUM HYDROXIDE SUSP 30 ML CUP PO PRN (07:00)
[2016-12-22] MEDS ORDERED: Post-op Orders (for Pharmacy) MISC XX ONE (07:00)
[2016-12-22] MEDS ORDERED: TRANEXAMIC ACID INJ 850 MG in SODIUM CHLORIDE 0.9% INJ 100 ML IV SCH ×2 (07:00→10:00)
[2016-12-22] MEDS ORDERED: EXPAREL PERI-ARTICULAR INJECTION (TOTAL VOL. 100 ML) P-ARTICULR SCH ×2 (07:00)
[2016-12-22] MEDS ORDERED: TRANEXAMIC ACID INJ 0 MG in SODIUM CHLORIDE 0.9% INJ 100 ML IV SCH (07:00)
[2016-12-22] MEDS ORDERED: SODIUM CHLORIDE 0.9% FLUSH 5 ML FLUSH IVF PRN (07:00)
[2016-12-22] MEDS ORDERED: ACETAMINOPHEN/HYDROcodone 325 MG/7.5 MG TAB PO PRN (07:00)
[2016-12-22] MEDS ORDERED: MORPHINE SULFATE 4 MG/ML INJ IV PUSH PRN (07:00)
[2016-12-22] MEDS ORDERED: ZOLPIDEM TARTRATE 5 MG TAB PO PRN (07:00)
[2016-12-22] MEDS ORDERED: ONDANSETRON HCL 4 MG/2 ML VIAL IVP PRN (07:00)
[2016-12-22] MEDS ORDERED: BUPIVACAINE LIPOSOME PF 1.3% 20 ML VIAL ONE (07:46)
--- NOTE | 2016-12-22 07:49 | PD.CONS ---
HPI Service [facility] Consult Requested By Dr Néstor dumont Reason for Consult medical management Primary Care Physician Barbie Paula M.D. Diagnoses: History of Present Illness 71-year-old female with a history of hypertension, hyperlipidemia, hypothyroidism and OA who despite medical management and injection continue to have severe right knee pain affecting her daily living activity including ambulation. Patient is taken to the operating room for right total knee arthroplasty. Hospitalist is consulted for medical management. Patient denies any chest pain or shortness of breath. No n/v/d/c. Vitals stable. Review of Systems Except as stated in HPI: all other systems reviewed are Neg Past Family Social History Allergies: Coded Allergies: No Known Allergies (Verified , 12/22/16) Past Medical History Hypertension Hyperlipidemia Hypothyroidism Bilateral severe OA Past Surgical History Left total knee arthroplasty 09/07/16 Reported Medications Reported Meds & Active Scripts Active Vicodin (Hydrocodone-Acetaminophen) 5-300 Mg Tab 1 Tab PO Q6H PRN Aspirin EC (Aspirin) 81 Mg Tabdr 81 Mg PO BID Reported Multiple Vitamin 1 Tab 1 Tab PO DAILY Mobic (Meloxicam) 15 Mg Tab 15 Mg PO DAILY Calci-Chew (Calcium Carbonate) 1,250 Mg Chew 1,250 Mg CHEW 1,250 mg calcium carbonate (500 mg elemental calcium) Omeprazole 10 Mg Cap 10 Mg PO DAILY Levothyroxine (Levothyroxine Sodium) 50 Mcg Tab 50 Mcg PO DAILY Losartan (Losartan Potassium) 100 Mg Tab 100 Mg PO DAILY Hydrochlorothiazide 25 Mg Tab 25 Mg PO DAILY Atorvastatin (Atorvastatin Calcium) 20 Mg Tab 20 Mg PO DAILY Family History Mother had breast CA Father NE in his 60s Social History Denies tobacco use, EtOH use or illicit drug intake. Physical Exam Vital Signs Vital Signs Date Time Temp Pulse Resp B/P Pulse Ox O2 Delivery O2 Flow Rate FiO2 12/22/16 05:51 98.4 72 20 149/69 96 Physical Exam GENERAL: This is a well-nourished, well-developed patient, in no apparent distress. SKIN: No rashes, ecchymoses or lesions. Cool and dry. HEAD: Atraumatic. Normocephalic. No temporal or scalp tenderness. EYES: Pupils equal round and reactive. Extraocular motions intact. No scleral icterus. No injection or drainage. ENT: Nose without bleeding, purulent drainage or septal hematoma. Throat without erythema, tonsillar hypertrophy or exudate. Uvula midline. Airway patent. NECK: Trachea midline. No JVD or lymphadenopathy. Supple, nontender, no meningeal signs. CARDIOVASCULAR: Regular rate and rhythm without murmurs, gallops, or rubs. RESPIRATORY: Clear to auscultation. Breath sounds equal bilaterally. No wheezes , rales, or rhonchi. GASTROINTESTINAL: Abdomen soft, non-tender, nondistended. No hepato-splenomegaly , or palpable masses. No guarding. MUSCULOSKELETAL: S/p right knee surgery. Extremities without clubbing, cyanosis , or edema. No joint tenderness, effusion, or edema noted. No calf tenderness. Negative Homans sign bilaterally. NEUROLOGICAL: Awake and alert. Cranial nerves II through XII intact. Motor and sensory grossly within normal limits. Five out of 5 muscle strength in all muscle groups. Normal speech. Laboratory Laboratory Tests Test 12/22/16 05:45 Blood Type O POSITIVE Antibody Screen NEGATIVE Assessment and Plan Assessment and Plan 71-year-old female with Severe right knee OA, S/p right total knee arthroplasty 12/[address] Néstor dumont, management per orthopedic surgery. Continue current postop care. DVT prophylaxis per orthopedic surgery. ET consult to treat and eval. Severe left knee OA: Status post left total knee arthroplasty 10/09 History of hypertension, hyperlipidemia, hypothyroidism: Resume outpatient medication. DVT prophylaxis: Per orthopedic surgery. Thank you for this consultation Code Status Full code Discussed Condition With Patient Cecilia Richmond MD December 22, 2016 07:49
[2016-12-22] MEDS: SODIUM CHLORIDE 0.9% FLUSH 5 ML FLUSH IVF SCH ×2 (09:00→20:53)
[2016-12-22] MEDS: LOSARTAN 50 MG TAB PO SCH (09:00)
[2016-12-22] MEDS: MULTIVITAMIN TAB PO SCH (09:00)
[2016-12-22] MEDS: ASPIRIN EC 81 MG TABEC PO SCH ×2 (09:00→20:53)
[2016-12-22] MEDS: PANTOPRAZOLE SOD 20 MG DELAYED RELEASE TAB PO SCH (09:00)
[2016-12-22] MEDS: ATORVASTATIN 20 MG TAB PO SCH (09:00)
[2016-12-22] MEDS: LEVOTHYROXINE SODIUM 50 MCG TAB PO SCH (09:00)
[2016-12-22] MEDS: HYDROCHLOROTHIAZIDE 25 MG TAB PO SCH (09:00)
[2016-12-22] MEDS ORDERED: DO NOT ADM ANY ANTICOAGULANT DRUGS PRN (09:10)
[2016-12-22] MEDS: LACTATED RINGER'S 1000 ML INJ 1,000 ML IV SCH ×2 (09:30→19:24)
--- NOTE | 2016-12-22 10:13 | RADRPT ---
EXAM DATE/TIME: 12/22/2016 09:37 [place] COMPARISON: No previous studies available for comparison. INDICATIONS : MEDICAL HISTORY : None. SURGICAL HISTORY : None. ENCOUNTER: Initial ACUITY: 1 day PAIN SCORE: Non-responsive. LOCATION: Right knee FINDINGS: Patient is status post placement of a right knee prosthesis. There is good position and alignment of the prosthesis and bony structures. The bony structures are grossly intact. Postsurgical changes are present. CONCLUSION: Good position and alignment on this postoperative examination. Oneil William MD on December 22, 2016 at 10:10 Board Certified Radiologist. This report was verified electronically.
[2016-12-22] MEDS: ACETAMINOPHEN/HYDROcodone 325 MG/7.5 MG TAB PO PRN ×3 (10:29→18:25)
[2016-12-22 11:00] VITALS: BP 133/66; PULSE 68; RESP 16; TEMP 95.9; O2SAT 97
[2016-12-22 11:36] VITALS: O2SAT 96
[2016-12-22] MEDS ORDERED: LACTATED RINGER'S 1000 ML INJ 1,000 ML IV ONE (12:00)
[2016-12-22] MEDS ORDERED: ePHEDrine/NS 25 MG/5 ML SYR IV ONE (12:00)
[2016-12-22] MEDS ORDERED: PROPOFOL 200 MG/20 ML AMP IV ONE (12:00)
[2016-12-22] MEDS ORDERED: ONDANSETRON HCL 4 MG/2 ML VIAL IV PUSH ONE (12:00)
[2016-12-22] MEDS: KETOROLAC TROMETHAMINE 30 MG/ML (IVP) VIAL IVP SCH ×2 (13:23→18:25)
[2016-12-22 15:26] VITALS: BP 115/53; PULSE 76; RESP 17; TEMP 96.4; O2SAT 92
[2016-12-22 16:10] VITALS: O2SAT 92
--- NOTE | 2016-12-22 19:08 | MP ---
cc: Yanira ADDISON. DATE OF SURGERY 12/22/2016 PREOPERATIVE DIAGNOSIS Primary osteoarthritis right knee. POSTOPERATIVE DIAGNOSIS Primary osteoarthritis right knee. OPERATION PERFORMED Right total knee arthroplasty with [employer] Triathlon prosthesis (uncemented). SURGEON Justin Addison MD ANESTHESIA Spinal with supplemental adductor canal block and local. INDICATIONS AND FINDINGS This 71-year-old woman has had right knee pain for 2-1/2 years at least. She has had progressive worsening so that she has difficulty with walking and can only walk one-half mile because of the pain. She has stiffness in the joint and pain on motion. She has feeling of laxity and difficulty with bearing weight. She has not responded to conservative measures including analgesics, nonsteroidal anti-inflammatory agents, activity modification, exercise, ambulatory aids, weight loss attempts and physical therapy when she was recovering from her left total knee replacement. Physical findings showed laxity in the medial compartment with palpable osteophytes and crepitation on range of motion with genu varum. Imaging studies showed severe osteoarthritis down to [id number] in the medial compartment with changes in the medial, lateral and patellofemoral compartments including subchondral cysts, osteophytes and sclerosis. Operative findings were consistent with the imaging studies which showed particularly medial compartment arthritis to [id number] with osteophytes throughout the knee and subchondral sclerosis. The prosthesis used was a [place] Triathlon prosthesis with the femur being a size 4 cruciate-retaining uncemented prosthesis, the tibia being a size 4 titanium baseplate with an 11-mm cruciate-retaining spacer of X3 polyethylene and the patella being a titanium backed size 32 mm asymmetric uncemented. PROCEDURE The patient was brought to the operating room and a spinal anesthetic was administered. She also had an adductor canal block administered after an appropriate time-out. This was done by Mark Laurent MD. She received prophylactic antibiotic in the form of Ancef and also received tranexamic acid. She was placed in a supine position on the operating table with a small bolster under the right hip. Pneumatic tourniquet was applied to the right thigh. Right leg was then prepped with alcohol, Hibiclens and Chloraprep and draped in the usual manner with the knee draped free. An appropriate time-out procedure was carried out. Local anesthesia was administered with Exparel in the anterior aspect of the knee. An incision was then made from three fingerbreadths above the superior medial pole of patella down to the tibial tubercle. The incision was deepened through subcutaneous tissues to the retinacular structures which were exposed medially and laterally. A medial retinacular incision was made from the superior medial pole of the patella down to the tibial tubercle. This was then carried up into the quadriceps tendon and splitting it longitudinally in the medial one-third. The patella was reflected. Medial and lateral dissection was carried out. The infrapatellar fat pad was debulked. The posterior surface of the patella was then excised with the oscillating saw taking care to prevent injury to the tendinous structures. Patella protector was applied. The patella was dropped into the lateral gutter. A suprapatellar plica and medial parapatellar plica were removed. The fenestrations were made in the distal end of femur and proximal end of the tibia with the appropriate drill. Medial and lateral meniscectomies were initiated. The intramedullary distal femoral cutting guide was then assembled for 5 degree 8-mm cut. When this was applied to the femur the cutting block was stabilized with pins. The jig was removed. The distal femoral cut was completed with the oscillating saw. The sizing guide was positioned in place along white sides line and the epicondylar axis. This was stabilized with pins. The size was determined to be a size 4. This was then removed. The 4:1 cutting block was then positioned in place. Anterior and posterior cuts were made followed by posterior and anterior chamfer cuts. The osteophytes were trimmed. Fenestration in the distal femur was filled with bone plug. Attention was then directed to the tibia. Medial and lateral meniscectomies were completed. The anterior cruciate ligament had been excised. Retractors were placed about the tibia. The intramedullary proximal tibial cutting guide and jig were then assembled and positioned appropriately. The alignment was checked for rotation. The cutting guide was stabilized with a pin for rotation and then subsequently after using the stylus off the lateral side for a 9 mm cut, this was stabilized with pins. The depth of cut was then verified with the spacer block. This was adjusted accordingly. The proximal tibial cut was then completed with the oscillating saw taking care to prevent injury to associated structures. The tibial baseplate trial determined that this was a size 4. A size 4 x 9 mm spacer was inserted into this. Femoral component was impacted into place. This showed some laxity, therefore this was changed to an 11. The stability was excellent. After pinning the tibia in place and stabilizing it the patella drill holes were made. A size 32-mm patella trial was positioned in place. The knee was taken through a range of motion. The range was easily 0-140 degrees by gravity. The stability was excellent. The tracking of patella was appropriate. Fenestrations in the distal femur were completed with the drill. Femoral and patella trials were removed. The tibial spacer was removed. The tibial punch was impacted into the tibia after placement of a bone graft. This was removed. The tibial drill guide was positioned and drill holes made. This was removed. The cut ends of bone were cleaned with pulse lavage. The tibial baseplate size 4 titanium was impacted into place and seated appropriately. The 11-mm spacer was inserted and impacted into place. The size 4 porous coated backing uncemented femoral component was impacted into place and seated appropriately. The patella was then positioned in place and tightened into position with the patella vice. The knee was taken through a range of motion. The stability was excellent. The patella tracking was appropriate. There was a range of motion from 0 degrees extension to 140 degrees of flexion by gravity. The entire knee was then injected with the remainder of the Exparel. Care was taken to get this into the posterior aspects as well. The drains were brought out the superior and lateral aspect of the suprapatellar pouch. Wound closure then commenced using 0 Vicryl interrupted [id number] sutures for retinacular structures and capsular structures, 2-0 Vicryl interrupted simple sutures with buried knots for the subcutaneous tissues and 4-0 Monocryl continuous subcuticular closure for the skin. The wound was dressed with Steri-Strips followed by dry dressing, sterile Sof-Rol, cooling pad, further sterile Sof-Rol and Eliecer bandage from the base of the toe to midthigh. The patient was transferred from the operating room to the recovery room in satisfactory condition having tolerated the procedure well. Counts were correct. Specimens none. Estimated blood loss 150 ml. MD ALEXEI Moreno/VIBHA /8:58 AM /6:44 PM MTDEdil
[2016-12-22 20:50] VITALS: BP 109/53; PULSE 64; RESP 16; TEMP 96.1; O2SAT 92
[2016-12-23 00:55] VITALS: BP 106/55; PULSE 67; RESP 16; TEMP 97.8; O2SAT 91
[2016-12-23] MEDS: KETOROLAC TROMETHAMINE 30 MG/ML (IVP) VIAL IVP SCH ×3 (01:05→13:00)
[2016-12-23] MEDS: ACETAMINOPHEN/HYDROcodone 325 MG/7.5 MG TAB PO PRN ×3 (03:19→13:42)
[2016-12-23 03:25] VITALS: BP 160/71; PULSE 66; RESP 16; TEMP 96.8; O2SAT 95
[2016-12-23] MEDS: LEVOTHYROXINE SODIUM 50 MCG TAB PO SCH (06:44)
[2016-12-23 07:05] LABS: HEMATOCRIT 26.1 % (35.0-46.0); REVIEW FLAG FINAL
--- NOTE | 2016-12-23 07:20 | PD.ORT.PN ---
Subjective Post Op Day #: 1 Subjective Remarks She is doing very well. There is not much pain that is well controlled. Range of Motion -6 to 91 degrees. Distance Walked 124 feet. Objective Vitals Vital Signs Date Time Temp Pulse Resp B/P Pulse Ox O2 Delivery O2 Flow Rate FiO2 12/23/16 04:32 18 12/23/16 03:25 96.8 66 16 160/71 95 12/23/16 02:05 18 12/23/16 00:55 97.8 67 16 106/55 91 12/22/16 22:36 Room Air 12/22/16 20:50 96.1 64 16 109/53 92 12/22/16 16:10 92 21 12/22/16 15:26 96.4 76 17 115/53 92 12/22/16 11:36 96 12/22/16 11:00 95.9 68 16 133/66 97 12/22/16 10:00 61 12 126/63 98 Room Air 12/22/16 09:45 65 20 128/64 96 Room Air 12/22/16 09:30 65 24 117/62 96 Room Air 12/22/16 09:14 97.4 72 12 113/58 96 Room Air I/O 12/22/16 12/22/16 12/22/16 12/23/16 12/23/16 12/23/16 07:00 15:00 23:00 07:00 15:00 23:00 Intake Total 2067 ml 720 ml 240 ml Output Total 180 ml 60 ml 30 ml Balance 1887 ml 660 ml -30 ml 240 ml Intake Oral 420 ml 720 ml 240 ml IV Total 247 ml Other 1400 ml Output Drainage Total 80 ml 60 ml 30 ml Estimated Blood Loss 100 ml # Voids 1 2 1 # Bowel Movements 0 0 0 Result Diagram: 12/23/16 0635 Imaging Knee x-ray looks good. Last 72 hours Impressions Knee X-Ray 12/22/16 0654 Signed Impressions: Service Date/Time: Thursday, December 22, 2016 09:37 - CONCLUSION: Good position and alignment on this postoperative examination. Oneil William MD Objective Remarks She is resting comfortably, supine in bed in the CPM. The neurovascular status is intact. The dressing is dry and intact. Assessment & Plan Ortho Post Op Day #: 1 Problem List: (1) Status post total right knee replacement Plan: Continue postop care and PT. Assessment and Plan Condition: Good. Orthopaedically stable. DVT prophylaxis: Sequentials, TEDs, ASA 81 mg BID. Discharge plans: Home with [facility]. Has appointment. Rx [place] 7.5/325. Flaco Sams MD (Charles) December 23, 2016 07:20
[2016-12-23] MEDS: LACTATED RINGER'S 1000 ML INJ 1,000 ML IV SCH (07:54)
[2016-12-23] MEDS ORDERED: HYDR-3580 PO (07:59)
[2016-12-23 08:00] VITALS: BP 105/53; PULSE 56; RESP 18; TEMP 97.6; O2SAT 93
--- NOTE | 2016-12-23 08:02 | HHI.FF ---
Face to Face Verification Diagnosis: (1) Status post total right knee replacement Physical Therapy Gait training Knee: Total knee, Protocol: Right, Gait training, Full weight bearing Right LE Weight Bearing: WB as tolerated Right LE Range of Motion: Active ROM (AROM, AAROM, PROM, PRE. ROM goal is 0 to 135 degrees. ROM in the OR was 0 to 140 degrees.) Nursing Nursing: Dressing changes Dressing Changes: Daily dressing change, Coverderm/Primapore Additional Instructions Remove steristrips on postop day 14. I have seen patient Alivia Levi on 12/23/16. My clinical findings support the need for the requested home health care services because: Ltd mobility - disease progression Limited ability to care for self High risk of falls I certify that my clinical findings support that this patient is homebound because: Post-op weakness Unsteady gait/balance Unsafe to leave home unassisted lFaco Sams MD ([place]) December 23, 2016 08:02
[2016-12-23] MEDS: MULTIVITAMIN TAB PO SCH (08:26)
[2016-12-23] MEDS: PANTOPRAZOLE SOD 20 MG DELAYED RELEASE TAB PO SCH (08:27)
[2016-12-23] MEDS: ATORVASTATIN 20 MG TAB PO SCH (08:27)
[2016-12-23] MEDS: HYDROCHLOROTHIAZIDE 25 MG TAB PO SCH (08:28)
[2016-12-23] MEDS: ASPIRIN EC 81 MG TABEC PO SCH (08:28)
[2016-12-23] MEDS: SODIUM CHLORIDE 0.9% FLUSH 5 ML FLUSH IVF SCH (08:29)
[2016-12-23] MEDS: LOSARTAN 50 MG TAB PO SCH (08:34)
--- NOTE | 2016-12-23 11:47 | HHI.PR ---
Subjective Remarks In the chair was able to ambulate today. Pain is controlled by meds. No n/v/d. Has constipation. No fever or chills. No cp, sob. Objective Vitals Vital Signs Date Time Temp Pulse Resp B/P Pulse Ox O2 Delivery O2 Flow Rate FiO2 12/23/16 08:00 97.6 56 18 105/53 93 12/23/16 07:50 18 12/23/16 04:32 18 12/23/16 03:25 96.8 66 16 160/71 95 12/23/16 00:55 97.8 67 16 106/55 91 12/22/16 22:36 Room Air 12/22/16 20:50 96.1 64 16 109/53 92 12/22/16 16:10 92 21 12/22/16 15:26 96.4 76 17 115/53 92 I/O 12/22/16 12/22/16 12/22/16 12/23/16 12/23/16 12/23/16 07:00 15:00 23:00 07:00 15:00 23:00 Intake Total 2067 ml 720 ml 240 ml Output Total 180 ml 60 ml 30 ml Balance 1887 ml 660 ml -30 ml 240 ml Intake Oral 420 ml 720 ml 240 ml IV Total 247 ml Other 1400 ml Output Drainage Total 80 ml 60 ml 30 ml Estimated Blood Loss 100 ml # Voids 1 2 1 # Bowel Movements 0 0 0 Result Diagram: 12/23/16 0635 Imaging Last Impressions Knee X-Ray 12/22/16 0654 Signed Impressions: Service Date/Time: Thursday, December 22, 2016 09:37 - CONCLUSION: Good position and alignment on this postoperative examination. Oneil William MD Objective Remarks GENERAL: This is a well-nourished, well-developed patient, in no apparent distress. SKIN: No rashes, ecchymoses or lesions. Cool and dry. HEAD: Atraumatic. Normocephalic. No temporal or scalp tenderness. EYES: Pupils equal round and reactive. Extraocular motions intact. No scleral icterus. No injection or drainage. ENT: Nose without bleeding, purulent drainage or septal hematoma. Throat without erythema, tonsillar hypertrophy or exudate. Uvula midline. Airway patent. NECK: Trachea midline. No JVD or lymphadenopathy. Supple, nontender, no meningeal signs. CARDIOVASCULAR: Regular rate and rhythm without murmurs, gallops, or rubs. RESPIRATORY: Clear to auscultation. Breath sounds equal bilaterally. No wheezes , rales, or rhonchi. GASTROINTESTINAL: Abdomen soft, non-tender, nondistended. No hepato-splenomegaly , or palpable masses. No guarding. MUSCULOSKELETAL: S/p right knee surgery. Extremities without clubbing, cyanosis , or edema. No joint tenderness, effusion, or edema noted. No calf tenderness. Negative Homans sign bilaterally. NEUROLOGICAL: Awake and alert. Cranial nerves II through XII intact. Motor and sensory grossly within normal limits. Five out of 5 muscle strength in all muscle groups. Normal speech. A/P Assessment and Plan 71-year-old female with Severe right knee OA, S/p right total knee arthroplasty 12/[address] Néstor dumont, management per orthopedic surgery. Continue current postop care. DVT prophylaxis per orthopedic surgery. PT consult to treat and eval. HGB dropped 2 units from 11.8 to 8.8 postsurgical. patient is however asymptomatic. Will start iron supplement po. To follow up as OP with her PCP. Severe left knee OA: Status post left total knee arthroplasty 10/09 History of hypertension, hyperlipidemia, hypothyroidism: Resume outpatient medication. DVT prophylaxis: Per orthopedic surgery. Thank you for this consultation Code Status Full code Discussed Condition With Patient, nurse Cecilia Richmond MD December 23, 2016 11:47
[2016-12-23] MEDS ORDERED: DOCU100C PO (11:50)
[2016-12-23] MEDS ORDERED: FERR325T20 PO (11:51)
[2016-12-23 12:00] VITALS: BP 122/63; PULSE 65; RESP 18; TEMP 96.4; O2SAT 97
[2016-12-23] MEDS ORDERED: FERROUS SULFATE 325 MG (65 MG ELEMENTAL IRON) TAB PO SCH (12:00)
[2016-12-23] MEDS ORDERED: DOCUSATE SODIUM 100 MG CAP PO SCH (21:00)
== END 2016-12-23 16:12 | disposition home health service (06) | DRG 470 ==
LOC: HSDI 12-22 05:12 → N06B 12-22 10:15
PROVIDERS: ADMIT Orthopaedic Surgery; ATTEND Orthopaedic Surgery
PROC: 3E0T3CZ (ICD-10-PCS; 2016-12-22)
PROC: 0SRC0JA Replacement of Right Knee Joint with Synthetic Substitute, Uncemented, Open Approach (ICD-10-PCS; principal; 2016-12-22 06:37)
DX: M17.11 Unilateral primary osteoarthritis, right knee (principal); I10 Essential (primary) hypertension; E03.9 Hypothyroidism, unspecified; K59.00 Constipation, unspecified; M21.161 Varus deformity, not elsewhere classified, right knee; E78.5 Hyperlipidemia, unspecified; Z96.652 Presence of left artificial knee joint
CPT/HCPCS: 73560; 85014; 85018; 86850; 86900; 86901; 94150; C1776; C9290; J0131; J0690; J1100; J1580; J1885; J2250; J2405; J3010; J7120

== ENCOUNTER → 2016-12-11 | Outpatient (CLI) | payer MEDICARE ==
[~2016-12-11] MED LIST changes: +DOCU100C PO; +FERR325T20 PO; +HYDR-3111 PO; +MOBI15TA PO; +MULTTAB67 PO
[2016-12-11 08:47] LABS: HEMATOCRIT 34.8 % (35.0-46.0); MEAN CELL VOLUME 83.4 FL (80.0-100.0); MEAN CORPUSCULAR HEMOGLOBIN 28.2 PG (27.0-34.0); MEAN CORPUSCULAR HGB CONC 33.9 % (32.0-36.0); PLATELET COUNT 272 TH/MM3 (150-450); RED BLOOD COUNT 4.17 MIL/MM3 (4.00-5.30); REVIEW FLAG FINAL; WHITE BLOOD COUNT 6.5 TH/MM3 (4.0-11.0)
[2016-12-11 09:00] LABS: APTT (PATIENT) 26.1 SEC (24.3-30.1); PROTHROMBIN TIME - PATIENT 10.7 SEC (9.8-11.6)
[2016-12-11 09:17] LABS: BICARBONATE 28.2 MEQ/L (21.0-32.0); POTASSIUM 3.9 MEQ/L (3.5-5.1)
[2016-12-11 10:25] LABS: BLOOD, URINE NEG (NEG); COMMENT (UR) CULT NOT INDICATED; CULTURE IF INDICATED CULT NOT INDICATED; GLUCOSE,URINE NEG (NEG); KETONE, URINE NEG (NEG); MUCUS URINE FEW /lpf (OCC); NITRITE,URINE NEG (NEG); URINE COLOR YELLOW (YELLW/STRAW)
== END ==
LOC: CPRE 08:13
PROVIDERS: ATTEND Orthopaedic Surgery
DX: Z01.812 Encounter for preprocedural laboratory examination (principal); M17.11 Unilateral primary osteoarthritis, right knee; M79.609 Pain in unspecified limb
CPT/HCPCS: 36415; 80048; 81001; 85027; 85610; 85730